=== PATIENT | female | born 1990 | race Caucasian/White ===

== ENCOUNTER 2017-03-26 05:02 | Emergency (ER) | payer SELFPAY ==
[~2017-03-26] VITALS: Ht 157.5 cm; Wt 87.5 kg
[2017-03-26 05:07] VITALS: BP 130/70
--- NOTE | 2017-03-26 05:14 | NUR ---
TO ER BED 4
--- NOTE | 2017-03-26 05:55 | NUR ---
26Y F BIB MOM C/O OF ABDOMINAL PAIN, N/V AND DIARRHEA SINCE 8PM LAST NIGHT. PAIN IS 10/10 IN SCALE.
[2017-03-26] MEDS ORDERED: ONDANSETRON 4 MG/2 ML VIAL ONE (05:56)
[2017-03-26] MEDS ORDERED: NACL 0.9% 1,000 ML IV ONE (06:05)
[2017-03-26] MEDS ORDERED: MORPHINE SULFATE 2 MG/ML SYR IVP ONE (06:10)
[2017-03-26] MEDS ORDERED: PANTOPRAZOLE 40 MG INJ VIAL IVP ONE ×2 (06:10→06:21)
[2017-03-26] MEDS ORDERED: ONDANSETRON 4 MG/2 ML VIAL IVP ONE (06:15)
[2017-03-26] MEDS ORDERED: MORPHINE SULFATE 2 MG/ML SYR ONE (06:22)
--- NOTE | 2017-03-26 07:10 | NUR ---
PT APPEARS TO BE RESTING COMFORTABLY IN BED; PT STATES PAIN 0/10 AT THIS TIME; AAOX4, RR EVEN/UNLABORED, WILL CONTINUE TO MONITOR.
--- NOTE | 2017-03-26 07:30 | NUR ---
IV removed to left ac 20 G established by previous rn, catheter intact and site benign. Applied folded 4x4 gauze and tape to stop bleeding. Pt tolerated procedure well.
[2017-03-26 07:36] VITALS: BP 117/73
--- NOTE | 2017-03-26 07:36 | NUR ---
Patient discharged with v/s stable. Written and verbal after care instructions given and explained. Patient alert, oriented and verbalized understanding of instructions. Ambulatory with steady gait. All questions addressed prior to discharge. ID band removed. Patient advised to follow up with PMD. Rx of TRAMADOL HYDROCHLORIDE 50MG TAB, ZOFRAN ODT 4MG & OMEPRAZOLE 40MG given. Patient educated on indication of medication including possible reaction and side effects. Opportunity to ask questions provided and answered.
== END 2017-03-26 07:36 | disposition home or self-care (01) ==
LOC: MED 05:02
DX: A08.4 Viral intestinal infection, unspecified (principal); R03.0 Elevated blood-pressure reading, without diagnosis of hypertension
CPT/HCPCS: 81002; 81025; 96361; 96374; 96375; 99284; C9113; J2270; J2405; J7030

== ENCOUNTER 2017-11-17 23:15 | Emergency (ER) | payer SELFPAY ==
[~2017-11-17] VITALS: Ht 157.5 cm; Wt 93.0 kg
[2017-11-17 23:27] VITALS: BP 137/88
--- NOTE | 2017-11-17 23:36 | NUR ---
PT TAKEN TO BED 3
--- NOTE | 2017-11-17 23:37 | NUR ---
Pt came into ED stating she fell in the shower and hit her upper left brow. Pt states 8/10 throbbing pain with light sensitivity. Lasceration 2cm x3mm, open with scant bleeding at this time, edema present. Pt is uncertain if she lost conciousness when she fell in the shower. Pt denies n/v, blurred vision, dizziness. ERMD aware. VSS at this time. Pt A&Ox4. Continue to monitor.
[2017-11-18] MEDS ORDERED: LIDOCAINE MPF 1% - **ER/OR** 5 ML ONE (00:04)
--- NOTE | 2017-11-18 00:04 | NUR ---
MD at bedside pending seuture administration.
[2017-11-18] MEDS ORDERED: NEOMYCIN/POLYMYXIN/BACITRACIN 0.9 GM/1 PKT TP ONE (00:05)
[2017-11-18] MEDS ORDERED: LIDOCAINE/EPI 2% 1:100000 20 ML VIAL INJ ONE (00:05)
--- NOTE | 2017-11-18 00:25 | NUR ---
Pt escorted to CT via wheel chair with Tech
[2017-11-18 01:06] VITALS: BP 137/88
--- NOTE | 2017-11-18 01:06 | NUR ---
Patient discharged with v/s stable by Dr. Matamoros. Written and verbal after care instructions given and explained. Patient verbalized understanding. Ambulatory with steady gait. All questions addressed prior to discharge. Advised to follow up with PMD.
== END 2017-11-18 01:06 | disposition home or self-care (01) ==
LOC: MED 23:15
DX: S01.112A Laceration without foreign body of left eyelid and periocular area, initial encounter (principal); W18.2XXA Fall in (into) shower or empty bathtub, initial encounter; Y93.F1 Activity, caregiving, bathing; Y92.89 Other specified places as the place of occurrence of the external cause; Y99.8 Other external cause status
CPT/HCPCS: 12011; 70450; 81025; 99284; J2001